=== PATIENT | male | born 1980 | race Caucasian/White ===

== ENCOUNTER 2023-03-05 17:36 | Emergency (ER) | payer SELFPAY ==
[2023-03-05] MEDS ORDERED: Triple Antibiotic Oint 1 GM Packet ONE (18:10)
== END 2023-03-05 18:30 | disposition home or self-care (01) ==
LOC: CSHERS 17:36
DX: S61.011D Laceration without foreign body of right thumb without damage to nail, subsequent encounter (principal); W19.XXXD Unspecified fall, subsequent encounter